=== PATIENT | male | born 1930 | race Caucasian/White ===

== ENCOUNTER 2017-01-16 17:22 | Inpatient (IN) | payer OTHER ==
--- NOTE | 2017-01-16 18:26 | Emergency Department Report ---
HPI - General Chief Complaint: Syncope Time Seen by Provider: 01/16/17 18:01 - HPI HPI: This is a 86-year-old Occitan male who presents to the emergency department by EMS after he had a episode of weakness and passing out at a local [employer]. The patient usually walks with a cane but since passing out he says that he has to dizzy to walk or feels unstable. He denies any vision change, chest pain , shortness of breath or any significant headache. He has a past medical history of hypertension and diabetes. He has a primary care doctor but has not seen them regarding the symptoms. He did not receive anything prior to presentation nor in route with the EMS. The patient does not speak any Venezuelan so a interpretation service was used. ED Past Medical Hx - Past Medical History Hx Hypertension: Yes Hx Diabetes: Yes - Social History Smoking Status: Never Smoker Substance Use Type: None ED Review of Systems ROS: Stated complaint: WEAKNESS Other details as noted in HPI Comment: All other systems reviewed and negative Constitutional: denies: chills, fever Eyes: denies: eye pain, eye discharge, vision change ENT: denies: ear pain, throat pain Respiratory: denies: cough, shortness of breath, wheezing Cardiovascular: syncope. denies: chest pain, palpitations Gastrointestinal: denies: abdominal pain, nausea, diarrhea Genitourinary: denies: urgency, dysuria Musculoskeletal: denies: back pain, joint swelling, arthralgia Skin: denies: rash, lesions Neurological: weakness, other (dizzy). denies: headache Physical Exam - Physical Exam Vital Signs: Vital Signs 01/16/17 17:51 Temperature 97.8 F Pulse Rate 79 Respiratory 18 Rate Blood Pressure 112/55 [Left] O2 Sat by Pulse 98 Oximetry Physical Exam: GENERAL: The patient is well-developed well-nourished. HEENT: Normocephalic. Atraumatic. Extraocular motions are intact. Patient has moist mucous membranes. Pupils equal reactive to light bilaterally. No nystagmus. NECK: Supple. Trachea is midline. CHEST/LUNGS: Clear to auscultation. There is no respiratory distress noted. HEART/CARDIOVASCULAR: Regular. There is no tachycardia. There is no gallop rub or murmur. ABDOMEN: Abdomen is soft, nontender. Patient has normal bowel sounds. There is no abdominal distention. SKIN: Skin is warm and dry. NEURO: The patient is awake, alert, and oriented. The patient is cooperative. The patient has no focal or sensory neurologic deficits. The patient has normal speech. Cranial nerves II through XII grossly intact. MUSCULOSKELETAL: There is no tenderness or deformity. There is no evidence of acute injury. Patient has some weakness to the bilateral lower extremities with leg and hip distention off the gurney. 5 out of 5 muscle strength for dorsi/plantar flexion. ED Course Vital Signs 01/16/17 17:51 Temperature 97.8 F Pulse Rate 79 Respiratory 18 Rate Blood Pressure 112/55 [Left] O2 Sat by Pulse 98 Oximetry ED Medical Decision Making - Lab Data Result diagrams: 01/16/17 19:11 01/16/17 19:11 - EKG Data -: EKG Interpreted by Me EKG shows normal: sinus rhythm, axis, intervals, QRS complexes (low-voltage), ST -T waves Rate: normal - EKG Data When compared to previous EKG there are: previous EKG unavailable Interpretation: other (sinus rhythm, low voltage QRS, borderline EKG) - Radiology Data Radiology results: report reviewed, image reviewed interpreted by me: Chest x-ray did not show any acute process. Heart is normal shape and size. No effusions. No pneumothorax. No signs of pneumonia seen. CT of the head does not show any acute process including no hemorrhage, mass, shift, diffuse edema or skull fracture. - Medical Decision Making 86-year-old male presents after a syncopal episode with some complaint of dizziness and her weakness and feeling as if he no longer has the ability to ambulate with his cane as he did before he passed out. CT does not show any bleed, shift, mass or any acute process. EKG just shows some low voltage QRS. Otherwise no ST elevation [place], dysrhythmia or ischemia. Patient does have multiple lab abnormalities. He has renal insufficiency with a creatinine of 2 and a GFR of around 30. With this he has some mild hyperkalemia with a potassium of 5.2. Patient has a elevated troponin. This may be secondary to renal insufficiency or may be the cause of his weakness with a NSTEMI. Patient will be given an aspirin to protect his heart. He was given some Kayexalate for the hyperkalemia. He was given some IV fluids to flush the kidneys. He will be admitted to the hospital for further evaluation and treatment and has been accepted for admission by the hospitalist, Dr. Lockett. - Differential Diagnosis [place], vasovagal, orthostatic hypertension, TIA, CVA Critical Care Time: No Critical care attestation.: If time is entered above; I have spent that time in minutes in the direct care of this critically ill patient, excluding procedure time. ED Disposition Clinical Impression: Renal insufficiency, Elevated troponin, Hyperkalemia, Weakness Syncope Qualifiers: Syncope type: unspecified Qualified Code(s): R55 - Syncope and collapse Disposition: OP ADMITTED IP TO THIS HOSP Is pt being admited?: Yes Does the pt Need Aspirin: Yes Condition: Stable Instructions: Syncope (ED) Time of Disposition: 21:48
--- NOTE | 2017-01-16 19:09 | Cat Scan Report ---
FINAL REPORT EXAM: CT HEAD/BRAIN WO CON HISTORY: Syncope TECHNIQUE: CT head without contrast PRIORS: None. FINDINGS: No acute intra-axial or extra-axial hemorrhage is identified. There is no evidence of midline shift or mass effect. The ventricles and sulci are within normal limits. Jay-white matter differentiation is intact. No acute parenchymal abnormalities seen. Bony calvarium is grossly intact. Visualized portions of the mastoids and paranasal sinuses are unremarkable. IMPRESSION: Negative CT head
[2017-01-16 19:30] LABS: Basophils % (Auto) 0.8 % (0.0-1.8); Eosinophils % (Auto) 1.3 % (0.0-4.3); Hematocrit 31.7 % (35.5-45.6); Hemoglobin 10.9 gm/dl (11.8-15.2); Mean Corpuscular HGB Conc 34 % (32-34); Mean Corpuscular Hemoglobin 33 pg (28-32); Mean Corpuscular Volume 97 fl (84-94); Platelet Count 342 K/mm3 (140-440); Red Blood Count 3.28 M/mm3 (3.65-5.03); Red Cell Distribution Width 13.1 % (13.2-15.2); White Blood Count 11.2 K/mm3 (4.5-11.0)
[2017-01-16 19:49] LABS: Albumin 3.5 g/dL (3.9-5); Albumin/Globulin Ratio 0.9 %; BUN/Creatinine Ratio 20.5; Bilirubin,Total 0.4 mg/dL (0.1-1.2); Calcium 8.9 mg/dL (8.4-10.2); Chloride 97.2 mmol/L (98-107); Potassium 5.2 mmol/L (3.6-5.0); Total Protein 7.2 g/dL (6.3-8.2)
[2017-01-16] MEDS ORDERED: KIONEX PO ONE (21:44)
[2017-01-16] MEDS ORDERED: NACL 0.9% 500 ML 500 ML IV ONE (21:44)
[2017-01-16] MEDS ORDERED: BABY ASPIRIN PO ONE (21:49)
[2017-01-16] MEDS ORDERED: D50W (25GM) IV PRN (23:21)
[2017-01-16] MEDS ORDERED: DULCOLAX PR PRN (23:21)
[2017-01-16] MEDS ORDERED: MILK OF MAGNESIA PO PRN (23:21)
[2017-01-16] MEDS ORDERED: ZOFRAN IV PRN (23:21)
[2017-01-16] MEDS ORDERED: PROVENTIL IH PRN (23:21)
[2017-01-16] MEDS ORDERED: TYLENOL PO PRN (23:21)
--- NOTE | 2017-01-16 23:32 | History and Physical Report ---
History of Present Illness Date of examination: 01/23/17 History of present illness: `N 86-year-old man history of hypertension diabetes came to the emergency room for a syncopal episode. The patient is Korean speaking, The son interpretered over the phone. Patient was at [facility], he had syncopal episode , unclear how long he passed out for. He now complains of weakness of the side. He had decreased oral intake Patient denies chest pain, palpitation, shortness of breath, cough, abdominal pain, hematochezia, dysuria, frequency, dysarthria, fever chills, polydipsia polyuria, hot or cold intolerance, easy bruisability, or rash or bleeding from mucosal membrane, rhinorrhea, epistaxis, earache, tinnitus, blurry vision, eye discharge, anxiety, depression. Other review of systems negative PAST SURGICAL HISTORY: None SOCIAL HISTORY: Denies alcohol, tobacco, drugs FAMILY HISTORY: Hypertension Medications and Allergies Allergies Allergy/AdvReac Type Severity Reaction Status Date / Time No Known Allergies Allergy Verified 01/16/17 23:37 Home Medications Medication Instructions Recorded Confirmed Last Taken Type No Known Home Medications [No 01/17/17 01/17/17 Unknown History Reported Home Medications] Active Meds: Active Medications Acetaminophen (Tylenol) 650 mg PO Q4H PRN PRN Reason: Pain MILD(1-3)/Fever >100.5/GANDHI Albuterol (Proventil) 2.5 mg IH Q3HRT PRN PRN Reason: Shortness Of Breath Bisacodyl (Dulcolax) 10 mg SC QDAY PRN PRN Reason: Constipation unrelieved by MOM Dextrose (D50w (25gm)) 50 ml IV PRN PRN PRN Reason: Hypoglycemia Enoxaparin Sodium (Lovenox) 30 mg SUB-Q QDAY ITA Magnesium Hydroxide (Milk Of Magnesia) 30 ml PO Q4H PRN PRN Reason: Constipation Ondansetron HCl (Zofran) 4 mg IV Q8H PRN PRN Reason: N/V unrelieved by Reglan Exam - Physical Exam Narrative exam: Gen. appearance: Patient lying in bed, no apparent distress HEENT: Normocephalic, atraumatic, pupils equally round and reactive to light, extraocular movement intact, and no sclericterus,. No JVD or thyromegaly or nodule,neck supple, no carotid bruit ,mucous membranes moist, no exudate or erythema Heart: S1, S2, regular rate and rhythm Lungs: Clear to auscultation bilaterally, breathing comfortable Abdomen: Positive bowel sounds, nontender, nondistended, no organomegaly Extremity: No edema, cyanosis, clubbing Skin: No rash, nodules, warm, dry Neuro: Oriented 3, cranial nerves II-12 intact, speech is fluent, difficult to assess monitor, poor effort - Constitutional Vitals: Temp Pulse Resp BP Pulse Ox 98.7 F 79 16 99/52 99 01/16/17 22:21 01/16/17 22:21 01/16/17 22:21 01/16/17 22:21 01/16/17 22:21 Results - Labs CBC & Chem 7: 01/18/17 07:07 01/18/17 07:07 Labs: Abnormal lab results 01/16/17 01/16/17 Range/Units 19:11 19:11 WBC 11.2 H (4.5-11.0) K/mm3 RBC 3.28 L (3.65-5.03) M/mm3 Hgb 10.9 L (11.8-15.2) gm/dl Hct 31.7 L (35.5-45.6) % MCV 97 H (84-94) fl MCH 33 H (28-32) pg RDW 13.1 L (13.2-15.2) % [place] % (Auto) 7.4 H (0.0-7.3) % Seg Neutrophils % 71.8 H (40.0-70.0) % Seg Neutrophils # 8.0 H (1.8-7.7) K/mm3 Sodium 136 L (137-145) mmol/L Potassium 5.2 H (3.6-5.0) mmol/L Chloride 97.2 L (98-107) mmol/L Carbon Dioxide 20 L (22-30) mmol/L BUN 41 H (9-20) mg/dL Creatinine 2.0 H (0.8-1.5) mg/dL Glucose 168 H (75-100) mg/dL Troponin T 0.113 H* (0.00-0.029) ng/mL Albumin 3.5 L (3.9-5) g/dL Triglycerides 172 H (2-149) mg/dL HDL Cholesterol 31 L (40-59) mg/dL - Imaging and Cardiology EKG: image reviewed Chest x-ray: image reviewed CT Scan - head: report reviewed Assessment and Plan Syncope versus stroke Renal Failure, acute vs chronic Hypertension Diabetes type 2 Admits medicine Obtain MRI of the head, d-dimer, do neurochecks Start IV fluids, aspirin Check fingersticks initiate insulin sliding scale, check cardiac enzymes Continue appropriate outpatient medications D-dimer elevated, obtain V/Q
[2017-01-17 03:20] LABS: Basophils % (Auto) 0.7 % (0.0-1.8); Eosinophils % (Auto) 2.9 % (0.0-4.3); Hematocrit 33.7 % (35.5-45.6); Hemoglobin 11.2 gm/dl (11.8-15.2); Mean Corpuscular HGB Conc 33 % (32-34); Mean Corpuscular Hemoglobin 32 pg (28-32); Mean Corpuscular Volume 97 fl (84-94); Platelet Count 368 K/mm3 (140-440); Red Blood Count 3.48 M/mm3 (3.65-5.03); White Blood Count 9.3 K/mm3 (4.5-11.0)
[2017-01-17 03:41] LABS: Creatine Kinase MB 1.8 ng/mL (0.0-4.0)
[2017-01-17] MEDS: NACL 0.9% 1000 ML 1,000 ML IV SCH (04:45)
[2017-01-17 07:03] LABS: Creatine Kinase MB 1.6 ng/mL (0.0-4.0)
--- NOTE | 2017-01-17 08:27 | Nuclear Medicine Report ---
LUNG SCAN, VENTILATION AND PERFUSION: History: Chest pain. Technique: 5mci of Tc99m MAA was infused for the perfusion images. 15mci XE 133 gas was inhaled for the ventilatory images. Correlation is made with a chest x-ray dated 01/16/17. Findings: Inhalation of Xenon gas demonstrates a normal distribution of the activity throughout both lungs. The wash out phases show no focal retention of activity. After injection of Technetium 99m macroaggregated albumin gamma camera imaging of the lungs in multiple projections demonstrates normal pulmonary contours with a homogeneous distribution of activity. No focal areas of perfusion deficiency are identified. IMPRESSION: Low probability for pulmonary embolus.
--- NOTE | 2017-01-17 08:27 | XRay Report ---
AP CHEST: HISTORY: Syncope, chest pain AP view of the chest demonstrates a normal mediastinal and cardiac contour with clear lungs and normal bony and soft tissue structures. IMPRESSION: No acute cardiopulmonary process identified.
[2017-01-17 09:01] LABS: BUN/Creatinine Ratio 19.5; Calcium 8.6 mg/dL (8.4-10.2); Chloride 102.7 mmol/L (98-107); Potassium 4.7 mmol/L (3.6-5.0)
--- NOTE | 2017-01-17 09:32 | Admit Criteria Form ---
Admission Criteria Documentation: SYNCOPE Clinical Indications for Admission to Inpatient Care ( Place 'X' for any and all applicable criteria): Admission is indicated for syncope and ANY ONE of the following (1)(2)(3)(4)(5) (6)(7) : [X ]I. Inpatient admission required rather than observation care (Also use Syncope: Observation Care Criteria as appropriate) because of ANY ONE of the following: [ ]a) Hemodynamic instability that is severe or persistent [ ]b) Cardiac arrhythmias of immediate concern identified or strongly suspected (eg, needs electrophysiologic study) [ ]c) Acute coronary syndrome identified (Also use Myocardial Infarction or Angina Criteria form ) [ ]d) Structural cardiac disorder (eg, aortic stenosis) suspected as cause that requires immediate correction [ ]e) Respiratory symptoms (eg, dyspnea, tachypnea) that are severe or persistent [ ]f) Neurologic signs or symptoms that are severe or persistent ( eg, stroke, seizures, altered mental status) [ ]g) Severe electrolyte abnormalities requiring inpatient care [ ]h) Supplemental oxygen or respiratory treatment for over 24 hrs that are performable only in acute inpatient setting [ ]i) IV fluid to replace significant ongoing (eg, for over 24 hrs ) losses (>3 L/m2 per day) [ ]j) Continuous intravenous infusion of anticoagulation, platelet inhibitor, vasoactive, or antiarrhythmic medication(15)(16) [ ]k) Pulmonary artery catheter monitoring [ ]l) Temporary pacemaker placement(17) [ ]m) Emergent cardioversion(18) [X ]n) Other conditions, treatment or monitoring requiring inpatient admission [ ]II. Suspicion of imminently dangerous cause (eg, rare causes like pericardial tamponade, pulmonary embolism) [ ]III. Syncope causing severe injury requiring hospitalization Extended stay beyond goal length of stay may be needed for(28) [ ]a) Dangerous arrhythmia(15)(23)(27)(29) [ ]b) Myocardial ischemia [ ]c) Seizure disorder [ ]d) Syncope-related injuries The original [employer] content created by [employer] has been revised. The portions of the content which have been revised are identified through the use of italic text or in bold, and [employer] has neither reviewed nor approved the modified material. All other unmodified content is copyright [employer] [employer]. Please see references footnoted in the original [facility] edition 2016 Admission Criteria Met: Yes
[2017-01-17] MEDS: LOVENOX SUB-Q SCH (12:13)
[2017-01-17] MEDS: BABY ASPIRIN PO SCH (12:13)
--- NOTE | 2017-01-17 15:52 | Progress Note ---
Assessment and Plan Syncope versus stroke -CT head with no acute finding - MRI prnding, cont aspirin and statin - cont frequent neuro checks - neuro consult if MRI positive for CVA Renal Failure, acute vs chronic - avoid nephrotoxins - Renal uS, iv fluid Hypertension -cont to monotor, now stable Diabetes type 2 - ADA diet, if passes swallow study - SSI, check A1c D-dimer elevated, obtained V/Q, no PE DVT/GI PX - lovenox and PPI Subjective Date of service: 01/17/17 Interval history: Pt seen and examined denies any chest pain No new focal deficit Objective - Exam Narrative Exam: Gen. appearance: Patient lying in bed, no apparent distress HEENT: Normocephalic, atraumatic, pupils equally round and reactive to light, extraocular movement intact, and no sclericterus,. No JVD or thyromegaly or nodule,neck supple, no carotid bruit ,mucous membranes moist, no exudate or erythema Heart: S1, S2, regular rate and rhythm Lungs: Clear to auscultation bilaterally, breathing comfortable Abdomen: Positive bowel sounds, nontender, nondistended, no organomegaly Extremity: No edema, cyanosis, clubbing Skin: No rash, nodules, warm, dry Neuro: Oriented 3, cranial nerves II-12 intact, speech is fluent, difficult to assess monitor, poor effort - Constitutional Vitals: Vital Signs - 12hr 01/17/17 01/17/17 01/17/17 06:12 08:52 10:32 Temperature 97.9 F 98.1 F Pulse Rate Pulse Rate [ 83 82 Apical] Pulse Rate [ Left] Respiratory 18 18 Rate Blood Pressure 121/73 130/62 [Left Arm] O2 Sat by Pulse 98 98 98 Oximetry 01/17/17 01/17/17 12:29 14:00 Temperature 98.2 F Pulse Rate 78 Pulse Rate [ Apical] Pulse Rate [ 18 L Left] Respiratory 19 Rate Blood Pressure 125/65 [Left Arm] O2 Sat by Pulse Oximetry - Labs CBC & Chem 7: 01/17/17 02:56 01/17/17 08:10 Labs: Abnormal lab results 01/17/17 01/17/17 01/17/17 Range/Units 02:56 02:56 02:56 RBC 3.48 L (3.65-5.03) M/mm3 Hgb 11.2 L (11.8-15.2) gm/dl Hct 33.7 L (35.5-45.6) % MCV 97 H (84-94) fl RDW 13.0 L (13.2-15.2) % Lymph % (Auto) 40.3 H (13.4-35.0) % [place] % (Auto) 8.5 H (0.0-7.3) % D-Dimer 2762.33 H (0-234) ng/mlDDU BUN (9-20) mg/dL Creatinine (0.8-1.5) mg/dL Glucose (75-100) mg/dL Troponin T 0.117 H* (0.00-0.029) ng/mL 01/17/17 01/17/17 Range/Units 06:14 08:10 RBC (3.65-5.03) M/mm3 Hgb (11.8-15.2) gm/dl Hct (35.5-45.6) % MCV (84-94) fl RDW (13.2-15.2) % Lymph % (Auto) (13.4-35.0) % Green % (Auto) (0.0-7.3) % D-Dimer (0-234) ng/mlDDU BUN 39 H (9-20) mg/dL Creatinine 2.0 H (0.8-1.5) mg/dL Glucose 137 H (75-100) mg/dL Troponin T 0.104 H* (0.00-0.029) ng/mL
--- NOTE | 2017-01-18 07:40 | Ultrasound Report ---
ULTRASOUND RENAL BILATERAL HISTORY: Chronic kidney disease. TECHNIQUE: transabdominal ultrasound with color Doppler interrogation. FINDINGS: The right kidney measures 9.5 x 4.2 x 4.9cm. Right renal cortex: 1.3cm. The left kidney measures 9.6 x 4.7 x 4.9cm. Left renal cortex: 1.8cm. The kidneys are normal size, contour and position. There is increased renal parenchymal echotexture bilaterally. Corticomedullary differentiation is preserved. No evidence for cystic disease, mass, nephrolithiasis, hydronephrosis or perinephric fluid. The views of the bladder and the region of the ureters appear normal. IMPRESSION: Renal parenchymal disease.
[2017-01-18 07:55] LABS: Basophils % (Auto) 0.9 % (0.0-1.8); Eosinophils % (Auto) 4.6 % (0.0-4.3); Hematocrit 30.2 % (35.5-45.6); Hemoglobin 10.4 gm/dl (11.8-15.2); Mean Corpuscular HGB Conc 35 % (32-34); Mean Corpuscular Hemoglobin 33 pg (28-32); Mean Corpuscular Volume 96 fl (84-94); Platelet Count 307 K/mm3 (140-440); Red Blood Count 3.15 M/mm3 (3.65-5.03); Red Cell Distribution Width 12.7 % (13.2-15.2); White Blood Count 7.3 K/mm3 (4.5-11.0)
[2017-01-18 08:08] LABS: BUN/Creatinine Ratio 22.3; Calcium 8.9 mg/dL (8.4-10.2); Chloride 101.8 mmol/L (98-107); Potassium 4.2 mmol/L (3.6-5.0)
[2017-01-18] MEDS ORDERED: PROTONIX IV SCH (10:00)
[2017-01-18] MEDS: LOVENOX SUB-Q SCH (11:45)
[2017-01-18] MEDS: BABY ASPIRIN PO SCH (11:45)
[2017-01-18] MEDS: PROTONIX PO SCH (13:10)
--- NOTE | 2017-01-18 14:04 | Magnetic Resonance Report ---
MRI of the brain without contrast. History: Dizziness. Procedure: Routine brain protocol without contrast. Findings: The posterior fossa is normal. The ventricles are normal in size and contour. There are no masses or extra-axial collections. There is no restricted diffusion. Minimal periventricular T2 and flair hyperintensities are noted. Mild cortical atrophy is present. The pituitary fossa is normal. There is evidence of mild chronic sinus disease involving ethmoid sinuses. Impression: No acute findings. 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
--- NOTE | 2017-01-18 17:27 | Progress Note ---
Assessment and Plan Syncope versus stroke - likely due to dehydration - CT head with no acute finding - MRI showed no infraction, cont aspirin and statin Renal Failure, acute on chronic - avoid nephrotoxins - Renal uS showed renal parenchymal disease, - cont iv fluid Hypertension -cont to monotor, now stable Diabetes type 2 - ADA diet - SSI, check A1c D-dimer elevated, obtained V/Q, no PE DVT/GI PX - lovenox and PPI Subjective Date of service: 01/18/17 Interval history: Pt seen and examined denies any chest pain No new focal deficit Objective - Exam Narrative Exam: Gen. appearance: Patient lying in bed, no apparent distress HEENT: Normocephalic, atraumatic, pupils equally round and reactive to light, extraocular movement intact, and no sclericterus,. No JVD or thyromegaly or nodule,neck supple, no carotid bruit ,mucous membranes moist, no exudate or erythema Heart: S1, S2, regular rate and rhythm Lungs: Clear to auscultation bilaterally, breathing comfortable Abdomen: Positive bowel sounds, nontender, nondistended, no organomegaly Extremity: No edema, cyanosis, clubbing Skin: No rash, nodules, warm, dry Neuro: Oriented 3, cranial nerves II-12 intact, speech is fluent, difficult to assess monitor, poor effort - Constitutional Vitals: Vital Signs - 12hr 01/18/17 01/18/17 09:15 09:33 Temperature 97.4 F L Pulse Rate [ 88 Left] Respiratory 20 Rate Blood Pressure 137/70 [Left Arm] O2 Sat by Pulse 95 99 Oximetry - Labs CBC & Chem 7: 01/18/17 07:07 01/18/17 07:07 Labs: Abnormal lab results 01/18/17 01/18/17 01/18/17 Range/Units 00:13 07:07 07:07 RBC 3.15 L (3.65-5.03) M/mm3 Hgb 10.4 L (11.8-15.2) gm/dl Hct 30.2 L (35.5-45.6) % MCV 96 H (84-94) fl MCH 33 H (28-32) pg MCHC 35 H (32-34) % RDW 12.7 L (13.2-15.2) % [place] % (Auto) 9.9 H (0.0-7.3) % [place] % (Auto) 4.6 H (0.0-4.3) % BUN 29 H (9-20) mg/dL Glucose 158 H (75-100) mg/dL Troponin T 0.053 H D (0.00-0.029) ng/mL 01/18/17 01/18/17 Range/Units 07:07 13:19 RBC (3.65-5.03) M/mm3 Hgb (11.8-15.2) gm/dl Hct (35.5-45.6) % MCV (84-94) fl MCH (28-32) pg MCHC (32-34) % RDW (13.2-15.2) % [place] % (Auto) (0.0-7.3) % Eos % (Auto) (0.0-4.3) % BUN (9-20) mg/dL Glucose (75-100) mg/dL Troponin T 0.059 H 0.068 H (0.00-0.029) ng/mL
[2017-01-18] MEDS: ERYTHROMYCIN OPHTH OINT OU SCH (21:36)
[2017-01-19] MEDS: NACL 0.9% 1000 ML 1,000 ML IV SCH (00:28)
[2017-01-19] MEDS: ERYTHROMYCIN OPHTH OINT OU SCH ×2 (00:51→05:12)
[2017-01-19 07:18] LABS: BUN/Creatinine Ratio 18.46; Calcium 8.6 mg/dL (8.4-10.2); Chloride 103.9 mmol/L (98-107); Potassium 4.7 mmol/L (3.6-5.0)
[2017-01-19] MEDS: PROTONIX PO SCH (09:11)
[2017-01-19] MEDS: BABY ASPIRIN PO SCH (09:11)
[2017-01-19] MEDS: LOVENOX SUB-Q SCH (09:11)
--- NOTE | 2017-01-19 09:56 | Discharge Summary ---
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 The patient is Montenegrin speaking, The son interpretered over the phone. Patient was at [facility], he had syncopal episode, unclear how long he passed out for. He now complains of weakness of the side. He had decreased oral intake Discharge Diagnosis: Syncope versus stroke - likely due to dehydration - CT head with no acute finding - MRI showed no infraction, cont aspirin and statin - 2D echo showed preserved EF Renal Failure, acute on chronic - avoided nephrotoxins - Renal US showed renal parenchymal disease, - continued on iv fluid, renal function improved Hypertension -diet controlled, stable without medication Diabetes type 2 - ADA diet, added metformin - A1c was 7.3 D-dimer elevated, obtained V/Q, no PE Disposition: DC/TX HOME UNDER HOME HEALTH Time spent for discharge: 32 minutes Core Measure Documentation - Palliative Care Palliative Care/ Comfort Measures: Not Applicable - Core Measures Any of the following diagnoses?: none Exam - Physical Exam Narrative exam: Gen. appearance: Patient lying in bed, no apparent distress HEENT: Normocephalic, atraumatic, pupils equally round and reactive to light, extraocular movement intact, and no sclericterus,. No JVD or thyromegaly or nodule,neck supple, no carotid bruit ,mucous membranes moist, no exudate or erythema Heart: S1, S2, regular rate and rhythm Lungs: Clear to auscultation bilaterally, breathing comfortable Abdomen: Positive bowel sounds, nontender, nondistended, no organomegaly Extremity: No edema, cyanosis, clubbing Skin: No rash, nodules, warm, dry Neuro: Oriented 3, cranial nerves II-12 intact, speech is fluent, difficult to assess monitor, poor effort - Constitutional Vitals: Temp Pulse Resp BP Pulse Ox 98.0 F 82 18 124/71 98 01/19/17 04:00 01/19/17 04:00 01/19/17 04:00 01/19/17 04:00 01/19/17 04:00 Plan Activity: fall precautions Weight Bearing Status: Non-Weight Bearing Diet: low cholesterol, low salt Follow up with: [facility] [Provider Group] - 7 Days PRIMARY CARE, [Primary Care Provider] - 3-5 Days Prescriptions: Aspirin [Aspirin BABY CHEW TAB] 81 mg PO QDAY #30 tab.chew metFORMIN [Glucophage] 500 mg PO BID #60 tablet
[2017-01-19 10:19] VITALS: BP 135/67
[2017-01-20] MEDS ORDERED: LOVENOX SUB-Q SCH (10:00)
== END 2017-01-19 13:01 | disposition home health service (06) | DRG 641 ==
LOC: ED 17:22 → 4A 23:21
PROVIDERS: ADMIT Internal Medicine; ATTEND Internal Medicine
DX: E86.0 Dehydration (principal); N17.9 Acute kidney failure, unspecified; R55 Syncope and collapse; E87.5 Hyperkalemia; E11.22 Type 2 diabetes mellitus with diabetic chronic kidney disease; I12.9 Hypertensive chronic kidney disease with stage 1 through stage 4 chronic kidney disease, or unspecified chronic kidney disease; N18.9 Chronic kidney disease, unspecified
CPT/HCPCS: 36415; 70450; 70551; 71010; 76770; 78582; 80048; 80053; 80061; 82550; 82553; 83036; 84443; 84484; 85025; 85379; 86850; 86900; 86901; 93005; 93010; 93306; 96360; 96361; A9270-GY; A9540; A9558; J1650; J7030; J7040